=== PATIENT | male | born 1975 | race African-American/Black ===

== ENCOUNTER 2025-03-30 12:07 | Inpatient (IN) | payer OTHER ==
[2025-03-30 12:33] VITALS: BMI 24.0
[2025-03-30] MEDS ORDERED: guaiFENesin 600 MG TABLET.ER (FP) PO PRN (13:42)
[2025-03-30] MEDS ORDERED: BENZOCAINE/MENTHOL (CHLORASEPTIC ) LOZENGE MM PRN (13:42)
[2025-03-30] MEDS ORDERED: NALOXONE (NARCAN) HCL 4 MG/0.1 ML SPRAY NS PRN (13:42)
[2025-03-30] MEDS ORDERED: MAGNESIUM HYDROX 2400MG/30ML ORAL SUSPENSION 30 ML CUP PO PRN (13:42)
[2025-03-30] MEDS ORDERED: BENZONATATE 200 MG CAPSULE PO PRN (13:42)
[2025-03-30] MEDS ORDERED: MAG HYDROX/AL HYDROX/SIMETH 30 ML UNIT-DOSE CUP PO PRN (13:42)
[2025-03-30] MEDS ORDERED: POLYETHYLENE GLYCOL (HEALTHYLAX) 3350 17 GM PACKET PO PRN (13:42)
[2025-03-30] MEDS ORDERED: IBUPROFEN 400 MG TABLET (FP) PO PRN (13:42)
[2025-03-30] MEDS ORDERED: LOPERAMIDE HCL 2 MG CAPSULE PO PRN (13:42)
[2025-03-30] MEDS ORDERED: TUBERCULIN PPD 5 TU/0.1ML VIAL ID ONE (16:40)
[2025-03-30] MEDS: MELATONIN 5 MG TABLETS PO SCH (21:28)
[2025-03-30] MEDS: THIAMINE 100 MG TABLET PO SCH (21:28)
[2025-03-30] MEDS: GABAPENTIN 400 MG CAPSULE PO SCH (21:28)
[2025-03-30] MEDS: hydrOXYzine PAMOATE 25 MG CAPSULE (FP) PO PRN (21:53)
[2025-03-31 08:11] LABS: PH,URINE 5.5 (5.0-8.0); URINE APPEARANCE CLEAR; URINE BILIRUBIN NEGATIVE (NEGATIVE); URINE COLOR YELLOW; URINE GLUCOSE (UA) NEGATIVE (NEGATIVE); URINE KETONE NEGATIVE (NEGATIVE); URINE LEUK ESTERASE NEGATIVE (NEGATIVE); URINE NITRITE NEGATIVE (NEGATIVE); URINE PROTEIN NEGATIVE (NEGATIVE); URINE UROBILINOGEN 0.2 mg/dL (0.2-1.0)
[2025-03-31] MEDS: PRENATAL VITAMINS W/ FOLIC ACID TABLET (FP) PO SCH (11:00)
[2025-03-31] MEDS: amLODIPine BESYLATE 10 MG TABLET (FP) PO SCH (11:00)
[2025-03-31 11:18] LABS: HEMATOCRIT 29.8 % (40.1-51.0); HEMOGLOBIN 9.7 g/dL (13.7-17.5); MCHC 32.6 g/dl (32.3-36.5); MEAN CELL VOLUME 99.7 fl (79.0-92.2); MEAN PLT VOLUME 9.7 fl (9.4-12.4); PLATELET COUNT 369 x10^3/uL (163-337); RDW 17.2 % (12.1-15.9)
[2025-03-31 11:25] LABS: POTASSIUM 4.7 mmol/L (3.5-5.1)
[2025-03-31 11:37] LABS: CREATININE 2.2 mg/dL (0.55-1.3)
[2025-03-31 11:38] LABS: BILIRUBIN,TOTAL 0.3 mg/dL (0.2-1); BLOOD UREA NITROGEN 46.9 mg/dL (7-18)
[2025-03-31 11:39] LABS: TOT PROT 7.1 g/dl (6.4-8.2)
[2025-03-31 11:43] LABS: CALCIUM 10.1 mg/dL (8.5-10.1)
[2025-03-31] MEDS: MIRTAZAPINE 15 MG TABLET (FP) PO SCH (21:04)
[2025-04-01] MEDS: IBUPROFEN 600 MG TABLET (FP) PO PRN (06:50)
[2025-04-01] MEDS: BACLOFEN 10 MG TABLET (FP) PO SCH (10:01)
[2025-04-01] MEDS: FERROUS SO4 325 MG TABLET (FP) PO SCH (14:30)
[2025-04-01] MEDS: NICOTINE 21 MG/24 HOURS TOPICAL PATCH TD SCH (14:32)
[2025-04-01] MEDS: NALTREXONE HCL 50 MG TABLET PO ONE (14:33)
[2025-04-01] MEDS: METHOCARBAMOL 500 MG TABLET PO PRN (14:34)
[2025-04-01] MEDS: DOCUSATE SODIUM 100 MG CAPSULE (FP) PO PRN (14:37)
[2025-04-01] MEDS: MIRTAZAPINE 15 MG TABLET (FP) PO SCH (21:45)
[2025-04-02] MEDS: NALTREXONE HCL 50 MG TABLET PO SCH (09:50)
[2025-04-03] MEDS: NICOTINE POLACRILEX 2 MG LOZENGE BC PRN (11:05)
[2025-04-03] MEDS: ACETAMINOPHEN 325 MG TABLET (FP) PO PRN (23:24)
[2025-04-04] MEDS: LIDOCAINE 5% TOPICAL PATCH TP SCH (14:39)
[2025-04-04] MEDS: GABAPENTIN 300 MG CAPSULE PO SCH ×2 (14:39→21:42)
[2025-04-04] MEDS: QUEtiapine FUMARATE 50 MG TABLET PO SCH (21:40)
[2025-04-04] MEDS: BACLOFEN 10 MG TABLET (FP) PO SCH (21:41)
[2025-04-04] MEDS: LIDOCAINE PATCH REMOVAL MC SCH (21:41)
[2025-04-05 10:23] LABS: HEMATOCRIT 30.4 % (40.1-51.0); HEMOGLOBIN 9.9 g/dL (13.7-17.5); MCHC 32.6 g/dl (32.3-36.5); MEAN CELL VOLUME 98.1 fl (79.0-92.2); MEAN PLT VOLUME 9.4 fl (9.4-12.4); PLATELET COUNT 340 x10^3/uL (163-337); RDW 17.5 % (12.1-15.9)
[2025-04-05 10:26] LABS: INR 0.92 (0.83-1.09)
[2025-04-05 12:26] LABS: POTASSIUM 5.1 mmol/L (3.5-5.1)
[2025-04-05 12:31] LABS: CALCIUM 10.2 mg/dL (8.5-10.1)
[2025-04-05 12:32] LABS: ALBUMIN 3.5 g/dl (3.4-5.0); BLOOD UREA NITROGEN 27.1 mg/dL (7-18)
[2025-04-05 12:36] LABS: BILIRUBIN,TOTAL 0.4 mg/dL (0.2-1); TOT PROT 6.4 g/dl (6.4-8.2)
[2025-04-05] MEDS: NICOTINE POLACRILEX 2 MG GUM BUC PRN (13:45)
[2025-04-06] MEDS ORDERED: CALAMINE 8% TOPICAL LOTION 177 ML BOTTLE TP PRN (14:05)
[2025-04-08] MEDS: HYDROCORTISONE 1% TOPICAL CREAM 30 GM TUBE TP PRN (06:22)
[2025-04-11] MEDS: GABAPENTIN 400 MG CAPSULE PO SCH (14:06)
[2025-04-11] MEDS: FUROSEMIDE 20 MG TABLET (FP) PO SCH (14:06)
[2025-04-11] MEDS: QUEtiapine FUMARATE 100 MG TABLET (FP) PO SCH (21:07)
[2025-04-11] MEDS: BACLOFEN 10 MG TABLET (FP) PO SCH (21:07)
[2025-04-15] MEDS: FUROSEMIDE 20 MG TABLET (FP) PO SCH (06:09)
[2025-04-16 20:49] VITALS: RESP 18
[2025-04-17] MEDS: METHYL SALICYLATE/MENTHOL 30 GM TUBE TP SCH (10:08)
[2025-04-18 06:16] VITALS: TEMP 97.7
[2025-04-18 09:39] VITALS: BP 126/71; PULSE 79
== END 2025-04-18 10:25 | disposition home or self-care (01) | DRG 895 ==
LOC: YASAS 12:07 → Y3W 14:31 → Y5N 15:14 → Y3W 15:19 → Y3NR 04-15 11:15
PROVIDERS: ADMIT Psychiatry & Neurology Pain Medicine; ATTEND Psychiatry & Neurology Pain Medicine
PROC: HZ42ZZZ Group Counseling for Substance Abuse Treatment, Cognitive-Behavioral (ICD-10-PCS; principal; 2025-03-30)
DX: F10.20 Alcohol dependence, uncomplicated (principal); F14.20 Cocaine dependence, uncomplicated; F19.282 Other psychoactive substance dependence with psychoactive substance-induced sleep disorder; F17.210 Nicotine dependence, cigarettes, uncomplicated; F32.A Depression, unspecified; F41.9 Anxiety disorder, unspecified; G62.9 Polyneuropathy, unspecified; D64.9 Anemia, unspecified; I10 Essential (primary) hypertension; M54.50 Low back pain, unspecified; G89.29 Other chronic pain; R79.89 Other specified abnormal findings of blood chemistry
CPT/HCPCS: 36415; 80053; 80305; 80307; 81003; 82140; 82272; 82652; 83735; 85027; 85610; 86780; 86803; 87811; 93005; 93010; J0475